=== PATIENT | male | born 1955 | race Caucasian/White ===

== ENCOUNTER 2016-12-10 10:54 | Inpatient (IN) | payer OTHER, MEDICARE ==
[~2016-12-10] VITALS: Ht 177.8 cm; Wt 80.2 kg
[~2016-12-10 10:54] MED LIST: CHLO25CA PO; FOLI1; OMEP20TA PO; THIA50CA PO; Z.0.NO CURRENT MEDS
[2016-12-10 10:59] VITALS: BP 139/85; PULSE 98; RESP 16; TEMP 99; O2SAT 97
[2016-12-10] MEDS ORDERED: LORazepam 1 MG TAB PO PRN (11:00)
[2016-12-10] MEDS ORDERED: FLUMAZENIL 0.5 MG/5 ML VIAL IV PUSH PRN (11:00)
[2016-12-10] MEDS ORDERED: IBUPROFEN 600 MG TAB PO PRN (11:00)
[2016-12-10] MEDS ORDERED: LORazepam 2 MG TAB PO PRN (11:00)
[2016-12-10] MEDS ORDERED: LORazepam 2 MG/ML VIAL IV PUSH PRN ×3 (11:00)
[2016-12-10] MEDS ORDERED: ONDANSETRON HCL 4 MG/2 ML VIAL IV PUSH PRN (11:00)
--- NOTE | 2016-12-10 11:05 | PD ---
HPI Chief Complaint: ba Time Seen by Provider: 11:05 Travel History International Travel<30 days: No Contact w/Intl Traveler<30days: No Traveled to known affect area: No History of Present Illness HPI 61-year-old male with history of CAD, remote CO, alcohol abuse, and tobacco dependency, presents to the emergency department under Anderson act for psychiatric evaluation. Patient was at the [place] [facility] when he stated that he was scared and may harm himself. He states that he has been severely depressed and does not want to live anymore. Denies any other substance abuse. Does report previous suicide attempts. Denies any acute medical needs at this time. PFSH Past Medical History Diminished Hearing: No Gastrointestinal Disorders: Yes (pancreatitis) Myocardial Infarction: Yes (1990) Pancreatitis: Yes Past Surgical History Appendectomy: Yes (1974) Social History Alcohol Use: Yes (Almost daily - 1/5th Vodka daily) Tobacco Use: Yes (1PPD) Substance Use: No Allergies-Medications (Allergen,Severity, Reaction): Coded Allergies: No Known Allergies (Unverified , 12/10/16) Reported Meds & Prescriptions Reported Meds & Active Scripts Active Reported B Complex (Vitamin B Complex) 1 Each Tablet 1 Tab PO DAILY Effexor (Venlafaxine HCl) 75 Mg Tab 75 Mg PO DAILY Trazodone (Trazodone HCl) 100 Mg Tablet 100 Mg PO HS Topiramate ER (Topiramate) 100 Mg Cap 100 Mg PO BID Prazosin (Prazosin HCl) 2 Mg Cap 2 Mg PO HS Mirtazapine 30 Mg Tab 30 Mg PO HS Meloxicam 7.5 Mg Tab 7.5 Mg PO DAILY Latuda (Lurasidone) 80 Mg Tab 80 Mg PO DAILY Isopto Tears Opth Drops (Hypromellose) 0.5% Drops 1 Drop EACH EYE Q6H PRN Hydroxyzine HCl 50 Mg Tab 50 Mg PO BID Review of Systems ROS Limitations: Intoxication Except as stated in HPI: all other systems reviewed are Neg Physical Exam Exam Limitations: Intoxication Narrative GENERAL: Well-nourished male patient, clinically intoxicated with slurred speech and smell of alcohol on his breath. SKIN: Focused skin assessment warm/dry. HEAD: Atraumatic. Normocephalic. EYES: Pupils equal and round. No scleral icterus. No injection or drainage. ENT: No nasal bleeding or discharge. Mucous membranes pink and moist. NECK: Trachea midline. No JVD. CARDIOVASCULAR: Regular rate and rhythm. No murmur appreciated. RESPIRATORY: No accessory muscle use. Clear to auscultation. Breath sounds equal bilaterally. GASTROINTESTINAL: Abdomen soft, non-tender, nondistended. Hepatic and splenic margins not palpable. MUSCULOSKELETAL: No obvious deformities. No clubbing. No cyanosis. No edema. NEUROLOGICAL: Awake and alert. No obvious cranial nerve deficits. Motor grossly within normal limits. Normal speech. Data Data Last Documented VS Vital Signs Date Time Temp Pulse Resp B/P Pulse Ox O2 Delivery O2 Flow Rate FiO2 12/10/16 17:05 97.8 81 16 122/84 98 Room Air Orders Complete Blood Count With Diff (12/10/16 11:00) Basic Metabolic Panel (Bmp) (12/10/16 11:00) Psych Screen (12/10/16 11:00) Drug Screen, Random Urine (12/10/16 11:00) Alcohol (Ethanol) (12/10/16 11:00) Diet Regular Basic (12/10/16 Lunch) Alcohol Withdrawal Asmt-Ciwa ONCE (12/10/16 11:00) Ondansetron Inj (Zofran Inj) (12/10/16 11:00) Ibuprofen (Motrin) (12/10/16 11:00) Flumazenil Inj (Romazicon Inj) (12/10/16 11:00) Lorazepam (Ativan) (12/10/16 11:00) Lorazepam Inj (Ativan Inj) (12/10/16 11:00) Lorazepam (Ativan) (12/10/16 11:00) Lorazepam Inj (Ativan Inj) (12/10/16 11:00) Lorazepam Inj (Ativan Inj) (12/10/16 11:00) Lorazepam Inj (Ativan Inj) (12/10/16 11:00) Labs Laboratory Tests Test 12/10/16 11:20 White Blood Count 10.1 TH/MM3 Red Blood Count 4.09 MIL/MM3 Hemoglobin 13.3 GM/DL Hematocrit 39.4 % Mean Corpuscular Volume 96.5 FL Mean Corpuscular Hemoglobin 32.4 PG Mean Corpuscular Hemoglobin 33.6 % Concent Red Cell Distribution Width 16.1 % Platelet Count 192 TH/MM3 Mean Platelet Volume 7.1 FL Neutrophils (%) (Auto) 74.5 % Lymphocytes (%) (Auto) 17.8 % Monocytes (%) (Auto) 7.1 % Eosinophils (%) (Auto) 0.2 % Basophils (%) (Auto) 0.4 % Neutrophils # (Auto) 7.5 TH/MM3 Lymphocytes # (Auto) 1.8 TH/MM3 Monocytes # (Auto) 0.7 TH/MM3 Eosinophils # (Auto) 0.0 TH/MM3 Basophils # (Auto) 0.0 TH/MM3 CBC Comment DIFF FINAL Differential Comment Sodium Level 134 MEQ/L Potassium Level 3.5 MEQ/L Chloride Level 96 MEQ/L Carbon Dioxide Level 23.8 MEQ/L Anion Gap 14 MEQ/L Blood Urea Nitrogen 11 MG/DL Creatinine 1.24 MG/DL Estimat Glomerular Filtration 59 ML/MIN Rate Random Glucose 196 MG/DL Calcium Level 9.1 MG/DL Ethyl Alcohol Level LESS THAN 3 MG/DL MDM Medical Decision Making Medical Screen Exam Complete: Yes Emergency Medical Condition: Yes Medical Record Reviewed: Yes Differential Diagnosis Mood disorder versus personality disorder versus adjustment reaction disorder versus substance abuse Narrative Course Laboratory Tests \ Test 12/10/16 11:20 White Blood Count 10.1 TH/MM3 Red Blood Count 4.09 MIL/MM3 Hemoglobin 13.3 GM/DL Hematocrit 39.4 % Mean Corpuscular Volume 96.5 FL Mean Corpuscular Hemoglobin 32.4 PG Mean Corpuscular Hemoglobin 33.6 % Concent Red Cell Distribution Width 16.1 % Platelet Count 192 TH/MM3 Mean Platelet Volume 7.1 FL Neutrophils (%) (Auto) 74.5 % Lymphocytes (%) (Auto) 17.8 % Monocytes (%) (Auto) 7.1 % Eosinophils (%) (Auto) 0.2 % Basophils (%) (Auto) 0.4 % Neutrophils # (Auto) 7.5 TH/MM3 Lymphocytes # (Auto) 1.8 TH/MM3 Monocytes # (Auto) 0.7 TH/MM3 Eosinophils # (Auto) 0.0 TH/MM3 Basophils # (Auto) 0.0 TH/MM3 CBC Comment DIFF FINAL Differential Comment Sodium Level 134 MEQ/L Potassium Level 3.5 MEQ/L Chloride Level 96 MEQ/L Carbon Dioxide Level 23.8 MEQ/L Anion Gap 14 MEQ/L Blood Urea Nitrogen 11 MG/DL Creatinine 1.24 MG/DL Estimat Glomerular Filtration 59 ML/MIN Rate Random Glucose 196 MG/DL Calcium Level 9.1 MG/DL Ethyl Alcohol Level LESS THAN 3 MG/DL 61-year-old male with history of alcoholism presents to emergency department under a Anderson act. Patient appears clinically intoxicated. He does report being scared that he may harm himself. Lab work is without acute concern. Patient is placed on CIWA protocol. He is medically cleared for psychiatric screening. Mental health screening discussed with the patient. Psychiatric screen ordered. Diagnosis Primary Impression: Depression Qualified Code: F32.9 - Depression, unspecified depression type Additional Impression: Alcohol dependence Qualified Code: F10.29 - Alcohol dependence with unspecified alcohol-induced disorder Condition: Stable Marlin Madrigal Dec 10, 2016 11:05
[2016-12-10] MEDS: LORazepam 2 MG/ML VIAL IV PUSH PRN ×2 (11:34→19:23)
[2016-12-10 11:47] LABS: AUTOMATED NEUTROPHIL # 7.5 TH/MM3 (1.8-7.7); BASOPHIL % 0.4 % (0.0-2.0); EOSINOPHIL % 0.2 % (0.0-4.0); HEMATOCRIT 39.4 % (39.0-51.0); HEMO FLAGS DIFF FINAL; LYMPH % 17.8 % (9.0-44.0); LYMPHOCYTE # 1.8 TH/MM3 (1.0-4.8); MEAN CELL VOLUME 96.5 FL (80.0-100.0); MEAN CORPUSCULAR HEMOGLOBIN 32.4 PG (27.0-34.0); MEAN CORPUSCULAR HGB CONC 33.6 % (32.0-36.0); MONO % 7.1 % (0.0-8.0); NEUT % 74.5 % (16.0-70.0); PLATELET COUNT 192 TH/MM3 (150-450); RED BLOOD COUNT 4.09 MIL/MM3 (4.50-5.90); RED CELL DISTRIBUTION WIDTH 16.1 % (11.6-17.2); WHITE BLOOD COUNT 10.1 TH/MM3 (4.0-11.0)
[2016-12-10 12:00] LABS: ANION GAP 14 MEQ/L (5-15); BICARBONATE 23.8 MEQ/L (21.0-32.0); BLOOD UREA NITROGEN 11 MG/DL (7-18); CHLORIDE 96 MEQ/L (98-107); GLOMERULAR FILTRATION RATE 59 ML/MIN (>89); POTASSIUM 3.5 MEQ/L (3.5-5.1); SODIUM (NA) 134 MEQ/L (136-145)
[2016-12-10 12:07] LABS: ALCOHOL LESS THAN 3 MG/DL (0-5)
[2016-12-10] MEDS ORDERED: ISOP0.5S EACH EYE (12:26)
[2016-12-10] MEDS ORDERED: HYDR50TA94 PO (12:26)
[2016-12-10] MEDS ORDERED: MIRT30TA PO (12:26)
[2016-12-10] MEDS ORDERED: RA BTAB PO (12:26)
[2016-12-10] MEDS ORDERED: VENL75TA PO (12:26)
[2016-12-10] MEDS ORDERED: TOPI1CAP22 PO (12:26)
[2016-12-10] MEDS ORDERED: PRAZ2CAP PO (12:26)
[2016-12-10] MEDS ORDERED: LURA80 PO (12:26)
[2016-12-10] MEDS ORDERED: TRAZ100T6 PO (12:26)
[2016-12-10] MEDS ORDERED: MELO7.5T4 PO (12:26)
[2016-12-10 13:03] VITALS: BP 124/81; PULSE 86; RESP 17; TEMP 97.8; O2SAT 99
[2016-12-10 15:00] VITALS: BP 118/77; PULSE 71; RESP 16; TEMP 98; O2SAT 99
[2016-12-10 17:05] VITALS: BP 122/84; PULSE 81; RESP 16; TEMP 97.8; O2SAT 98
[2016-12-10 19:24] VITALS: BP 118/86; PULSE 88; RESP 17; O2SAT 99
[2016-12-10] MEDS ORDERED: MAGNESIUM HYDROXIDE SUSP 30 ML CUP PO PRN (23:30)
[2016-12-10] MEDS ORDERED: diphenhydrAMINE HCL 50 MG CAP PO PRN (23:30)
[2016-12-10] MEDS ORDERED: ALUMINUM/MAGNESIUM/SIMETH 30 ML CUP PO PRN (23:30)
[2016-12-10] MEDS ORDERED: traZODone HCL 50 MG TAB PO PRN (23:30)
[2016-12-10] MEDS ORDERED: ACETAMINOPHEN 325 MG TAB PO PRN (23:30)
[2016-12-10] MEDS ORDERED: diphenhydrAMINE HCL 50 MG/ML VIAL - HS PRN IM (23:30)
[2016-12-10] MEDS ORDERED: diphenhydrAMINE HCL 50 MG CAP - HS PRN PO (23:30)
[2016-12-10] MEDS ORDERED: diphenhydrAMINE HCL 50 MG/ML VIAL IM PRN (23:30)
[2016-12-10] MEDS ORDERED: HALOPERIDOL LACTATE 5 MG/ML AMP IM PRN (23:30)
[2016-12-10 23:45] VITALS: BP 126/79; PULSE 87; RESP 18; TEMP 98.7; O2SAT 95
[2016-12-10] MEDS ORDERED: HYPROMELLOSE OPTH EACH EYE PRN (23:45)
[2016-12-11 05:21] VITALS: BP 113/68; PULSE 77; RESP 16; TEMP 98; O2SAT 98
[2016-12-11] MEDS: LURASIDONE 80 MG TAB PO SCH (08:28)
[2016-12-11] MEDS: VENLAFAXINE HCL XR 75 MG CAP PO SCH (08:28)
[2016-12-11] MEDS: NICOTINE 21 MG/24 HR PATCH T-DERMAL SCH (08:28)
[2016-12-11] MEDS: TOPIRAMATE 100 MG PO SCH ×2 (08:35→21:00)
[2016-12-11] MEDS ORDERED: PNEUMOCOCCAL POLYVALENT INJ 25 MCG/0.5 ML SYR IM ONE (09:00)
[2016-12-11 12:25] LABS: AUTOMATED NEUTROPHIL # 5.2 TH/MM3 (1.8-7.7); BASOPHIL # 0.1 TH/MM3 (0-0.2); BASOPHIL % 0.8 % (0.0-2.0); EOSINOPHIL # 0.2 TH/MM3 (0-0.4); EOSINOPHIL % 1.8 % (0.0-4.0); HEMATOCRIT 42.7 % (39.0-51.0); HEMO FLAGS DIFF FINAL; LYMPH % 36.4 % (9.0-44.0); LYMPHOCYTE # 3.5 TH/MM3 (1.0-4.8); MEAN CELL VOLUME 96.9 FL (80.0-100.0); MEAN CORPUSCULAR HEMOGLOBIN 32.8 PG (27.0-34.0); MEAN CORPUSCULAR HGB CONC 33.9 % (32.0-36.0); MONO % 6.3 % (0.0-8.0); NEUT % 54.7 % (16.0-70.0); PLATELET COUNT 181 TH/MM3 (150-450); RED CELL DISTRIBUTION WIDTH 15.8 % (11.6-17.2); WHITE BLOOD COUNT 9.5 TH/MM3 (4.0-11.0)
[2016-12-11 13:00] LABS: ANION GAP 9 MEQ/L (5-15); BICARBONATE 29.1 MEQ/L (21.0-32.0); BLOOD UREA NITROGEN 18 MG/DL (7-18); CHLORIDE 100 MEQ/L (98-107); GLOMERULAR FILTRATION RATE 60 ML/MIN (>89); HDL CHOLESTEROL 56.2 MG/DL (40.0-60.0); LDL CHOLESTEROL 157 MG/DL (0-99); POTASSIUM 3.7 MEQ/L (3.5-5.1); SODIUM (NA) 138 MEQ/L (136-145)
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
[2016-12-11 17:00] LABS: HEMOGLOBIN A1a 1.5 %; HEMOGLOBIN A1b 0.9 %; HEMOGLOBIN Ao 83.2 %; HEMOGLOBIN F 1.9 %; HEMOGLOBIN LA1C 2.5 %; HEMOGLOBIN P3 4.1 %
[2016-12-11] MEDS ORDERED: HYPROMELLOSE 0.3 % OPTH GEL 10 GM (0.34 FL OZ) TUBE EACH EYE PRN (17:00)
[2016-12-11 18:16] VITALS: BP 115/76; PULSE 96; RESP 16; TEMP 98.6; O2SAT 98
[2016-12-11] MEDS ORDERED: PRAZOSIN HCL 2 MG CAP PO SCH (21:00)
[2016-12-11] MEDS ORDERED: traZODone HCL 100 MG TAB PO SCH (21:00)
[2016-12-11] MEDS ORDERED: MIRTAZAPINE 15 MG TAB PO SCH (21:00)
[2016-12-11] MEDS: REMOVE OLD NICOTINE PATCH T-DERMAL SCH (21:00)
[2016-12-11] MEDS: PRAZOSIN HCL 2 MG CAP PO SCH (21:29)
[2016-12-11] MEDS: MIRTAZAPINE 15 MG TAB PO SCH (21:30)
[2016-12-11] MEDS: TOPIRAMATE 100 MG TAB PO SCH (21:34)
[2016-12-12 05:03] VITALS: BP 101/72; PULSE 92; RESP 16; TEMP 97.7; O2SAT 96
[2016-12-12] MEDS: TOPIRAMATE 100 MG TAB PO SCH ×2 (08:19→23:00)
[2016-12-12] MEDS: THIAMINE HCL 100 MG TAB PO SCH (08:20)
[2016-12-12] MEDS: MELOXICAM 7.5 MG TAB PO SCH (08:20)
[2016-12-12] MEDS: VITAMIN B COMPLEX/VIT C TAB PO SCH (08:20)
[2016-12-12] MEDS: VENLAFAXINE HCL XR 75 MG CAP PO SCH (08:20)
[2016-12-12] MEDS: LURASIDONE 80 MG TAB PO SCH (08:20)
[2016-12-12] MEDS: NICOTINE 21 MG/24 HR PATCH T-DERMAL SCH (08:21)
[2016-12-12] MEDS: TOPIRAMATE 100 MG PO SCH ×2 (08:28→21:00)
[2016-12-12] MEDS ORDERED: LURASIDONE 80 MG TAB PO SCH (09:00)
[2016-12-12] MEDS ORDERED: VENLAFAXINE HCL XR 75 MG CAP PO SCH (09:00)
--- NOTE | 2016-12-12 09:51 | HHI.PYPN ---
Subjective Remarks Patient seen in his room and floor staff, continues calm cooperative with me though somewhat blunted affect. He continues with auditory hallucinations of a demeaning insulting nature. He denies suicidal ideation "so far" today. States his sleep is this very poor last night. States he has been taking 300 mg trazodone at at bedtime. Will increase at bedtime dose at this time to 200 mg and observe. for Now continue treatment Review of Systems Except as stated in HPI: all other systems reviewed are Neg Objective Alert: Yes [place]: Person, Place, Date Mood: Calm, Depressed Affect: Blunted Memory Intact: Comment (fair) Hallucinations: Auditory (the command intimidating belittling nature) Delusions: No Delusion Type: Other (vigilant) Suicidal: Ideation (ambiguous today) Homicidal: Ideation (denies) Insight/Judgment Poor Labs Test 12/11/16 11:33 White Blood Count 9.5 TH/MM3 Red Blood Count 4.40 MIL/MM3 Hemoglobin 14.4 GM/DL Hematocrit 42.7 % Mean Corpuscular Volume 96.9 FL Mean Corpuscular Hemoglobin 32.8 PG Mean Corpuscular Hemoglobin 33.9 % Concent Red Cell Distribution Width 15.8 % Platelet Count 181 TH/MM3 Mean Platelet Volume 8.1 FL Neutrophils (%) (Auto) 54.7 % Lymphocytes (%) (Auto) 36.4 % Monocytes (%) (Auto) 6.3 % Eosinophils (%) (Auto) 1.8 % Basophils (%) (Auto) 0.8 % Neutrophils # (Auto) 5.2 TH/MM3 Lymphocytes # (Auto) 3.5 TH/MM3 Monocytes # (Auto) 0.6 TH/MM3 Eosinophils # (Auto) 0.2 TH/MM3 Basophils # (Auto) 0.1 TH/MM3 CBC Comment DIFF FINAL Differential Comment Sodium Level 138 MEQ/L Potassium Level 3.7 MEQ/L Chloride Level 100 MEQ/L Carbon Dioxide Level 29.1 MEQ/L Anion Gap 9 MEQ/L Blood Urea Nitrogen 18 MG/DL Creatinine 1.22 MG/DL Estimat Glomerular Filtration 60 ML/MIN Rate Random Glucose 101 MG/DL Hemoglobin A1c 5.2 % Calcium Level 9.9 MG/DL Triglycerides Level 249 MG/DL Cholesterol Level 263 MG/DL LDL Cholesterol 157 MG/DL HDL Cholesterol 56.2 MG/DL Cholesterol/HDL Ratio 4.67 RATIO Vitals/IOs Vital Signs Date Time Temp Pulse Resp B/P Pulse Ox O2 Delivery O2 Flow Rate FiO2 12/12/16 05:03 97.7 92 16 101/72 96 12/10/16 19:24 Room Air Intake and Output 12/11/16 12/11/16 12/11/16 07:59 15:59 23:59 Intake Total 360 ml Balance 360 ml Assessment & Plan Problem List: (1) Alcohol dependence ICD Code: F10.20 (2) Major depressive disorder, recurrent episode, severe, with psychosis ICD Code: F33.3 Assessment & Plan Estimated LOS: days patient continue psychotic and depressed. Poor sleep. She medication adjustment about. Justification for Cont. Inpt. At this time patient will decompensate and placed in the lower level of care Discharge Planning To be determined Request HC Surrog/Guard Advoc?: No Problem Qualifiers (1) Alcohol dependence: Qualified Code: F10.20 - Uncomplicated alcohol dependence Jakub Atwood MD Dec 12, 2016 09:51
[2016-12-12 20:24] VITALS: BP 118/86; PULSE 101; RESP 16; TEMP 98.1; O2SAT 98
[2016-12-12] MEDS: REMOVE OLD NICOTINE PATCH T-DERMAL SCH (21:00)
[2016-12-12] MEDS: PRAZOSIN HCL 2 MG CAP PO SCH (21:43)
[2016-12-12] MEDS: MIRTAZAPINE 15 MG TAB PO SCH (21:44)
[2016-12-12] MEDS: traZODone HCL 100 MG TAB PO SCH (21:44)
[2016-12-13 05:20] VITALS: BP 169/65; PULSE 92; RESP 16; TEMP 98.7; O2SAT 96
[2016-12-13] MEDS: TOPIRAMATE 100 MG PO SCH ×2 (09:00→21:00)
[2016-12-13] MEDS: LURASIDONE 80 MG TAB PO SCH (09:19)
[2016-12-13] MEDS: VITAMIN B COMPLEX/VIT C TAB PO SCH (09:19)
[2016-12-13] MEDS: MELOXICAM 7.5 MG TAB PO SCH (09:19)
[2016-12-13] MEDS: TOPIRAMATE 100 MG TAB PO SCH ×2 (09:19→21:06)
[2016-12-13] MEDS: VENLAFAXINE HCL XR 75 MG CAP PO SCH (09:19)
[2016-12-13] MEDS: THIAMINE HCL 100 MG TAB PO SCH (09:19)
[2016-12-13] MEDS: NICOTINE 21 MG/24 HR PATCH T-DERMAL SCH (09:20)
--- NOTE | 2016-12-13 15:45 | HHI.PYPN ---
Subjective Remarks Patient was seen and case discussed with nursing. Patient is pleasant and cooperative with exam. CIWA is 0. There are no visual hallucinations, nausea, vomiting. He is complaining of some burning in his stomach. Denies auditory visual hallucinations. Mood is "pretty good." Denies suicidal ideation intent or plan. Says he is vigilant Objective Alert: Yes [place]: Person, Place, Date Mood: Calm Affect: Restricted Memory Intact: Comment (fair) Hallucinations: Auditory (denies today) Delusions: No Delusion Type: Paranoid (vigilance) Suicidal: Ideation (denies) Homicidal: Ideation (denies) Insight/Judgment Poor Vitals/IOs Vital Signs Date Time Temp Pulse Resp B/P Pulse Ox O2 Delivery O2 Flow Rate FiO2 12/13/16 05:20 98.7 92 16 169/65 96 12/10/16 19:24 Room Air Assessment & Plan Problem List: (1) Alcohol dependence ICD Code: F10.20 (2) Major depressive disorder, recurrent episode, severe, with psychosis ICD Code: F33.3 Assessment & Plan Continue current treatment plan Justification for Cont. Inpt. Patient would decompensate in a less restrictive setting Request HC Surrog/Guard Advoc?: No Problem Qualifiers (1) Alcohol dependence: Qualified Code: F10.20 - Uncomplicated alcohol dependence Quincy Allen DO Dec 13, 2016 15:45
[2016-12-13 17:00] VITALS: BP 106/78; PULSE 108; RESP 18; TEMP 98.3; O2SAT 98
[2016-12-13] MEDS: REMOVE OLD NICOTINE PATCH T-DERMAL SCH (21:00)
[2016-12-13] MEDS: PRAZOSIN HCL 2 MG CAP PO SCH (21:06)
[2016-12-13] MEDS: traZODone HCL 100 MG TAB PO SCH (21:07)
[2016-12-13] MEDS: MIRTAZAPINE 15 MG TAB PO SCH (21:07)
[2016-12-14 07:13] VITALS: BP 114/67; PULSE 83; RESP 18; O2SAT 96
[2016-12-14] MEDS: TOPIRAMATE 100 MG PO SCH ×2 (09:00→20:37)
[2016-12-14] MEDS: MELOXICAM 7.5 MG TAB PO SCH (09:23)
[2016-12-14] MEDS: NICOTINE 21 MG/24 HR PATCH T-DERMAL SCH (09:23)
[2016-12-14] MEDS: THIAMINE HCL 100 MG TAB PO SCH (09:23)
[2016-12-14] MEDS: LURASIDONE 80 MG TAB PO SCH (09:23)
[2016-12-14] MEDS: VENLAFAXINE HCL XR 75 MG CAP PO SCH (09:23)
[2016-12-14] MEDS: TOPIRAMATE 100 MG TAB PO SCH ×2 (09:23→20:34)
[2016-12-14] MEDS: VITAMIN B COMPLEX/VIT C TAB PO SCH (09:23)
--- NOTE | 2016-12-14 16:56 | HHI.PYPN ---
Subjective Remarks Patient was seen and case discussed with nursing. Patient is complaining is not getting Atarax but does not appear to be ordered. He is blunted and hypoverbal. Seclusive per nursing, up only for meals. He is depressed "a little bit." He denies suicidal ideation intent or plan. Says he feels safe here compared to his home. Tolerating his medications well Objective Alert: Yes [place]: Person, Place, Date Mood: Calm Affect: Blunted Memory Intact: Comment (fair) Hallucinations: Auditory (denies today) Delusions: No Delusion Type: Paranoid (vigilance) Suicidal: Ideation (denies) Homicidal: Ideation (denies) Insight/Judgment Poor Vitals/IOs Vital Signs Date Time Temp Pulse Resp B/P (MAP) Pulse Ox O2 Delivery O2 Flow Rate FiO2 12/14/16 07:13 83 18 114/67 (83) 96 12/13/16 17:00 98.3 12/10/16 19:24 Room Air Assessment & Plan Problem List: (1) Alcohol dependence ICD Codes: F10.20 - Alcohol dependence, uncomplicated Status: Acute (2) Major depressive disorder, recurrent episode, severe, with psychosis ICD Codes: F33.3 - Major depressive disorder, recurrent, severe with psychotic symptoms Status: Acute Assessment & Plan Continue current treatment plan Justification for Cont. Inpt. Patient would decompensate in a less restrictive setting Request HC Surrog/Guard Advoc?: No Problem Qualifiers (1) Alcohol dependence: Quincy Allen DO Dec 14, 2016 16:56
[2016-12-14] MEDS ORDERED: hydrOXYzine HCL 50 MG TAB PO PRN (17:00)
[2016-12-14 18:36] VITALS: BP 141/75; PULSE 96; RESP 17; TEMP 98.8; O2SAT 97
[2016-12-14] MEDS: PRAZOSIN HCL 2 MG CAP PO SCH (20:34)
[2016-12-14] MEDS: traZODone HCL 100 MG TAB PO SCH (20:34)
[2016-12-14] MEDS: MIRTAZAPINE 15 MG TAB PO SCH (20:34)
[2016-12-14] MEDS: REMOVE OLD NICOTINE PATCH T-DERMAL SCH (20:35)
[2016-12-15 06:05] VITALS: BP 109/66; PULSE 81; RESP 16; TEMP 98.9; O2SAT 100
[2016-12-15] MEDS: TOPIRAMATE 100 MG TAB PO SCH ×2 (09:02→21:44)
[2016-12-15] MEDS: VENLAFAXINE HCL XR 75 MG CAP PO SCH (09:02)
[2016-12-15] MEDS: NICOTINE 21 MG/24 HR PATCH T-DERMAL SCH (09:02)
[2016-12-15] MEDS: VITAMIN B COMPLEX/VIT C TAB PO SCH (09:02)
[2016-12-15] MEDS: LURASIDONE 80 MG TAB PO SCH (09:02)
[2016-12-15] MEDS: THIAMINE HCL 100 MG TAB PO SCH (09:02)
[2016-12-15] MEDS: MELOXICAM 7.5 MG TAB PO SCH (09:03)
--- NOTE | 2016-12-15 16:39 | HHI.PYPN ---
Subjective Remarks Patient seen with nurse Noemy, chart reviewed, patient compliant medications. Patient states had good weekend, his depression is lifting. He denies suicidality homicidality voices or visions. He feels medication is working well. Patient continues to do would consider discharge tomorrow Review of Systems Except as stated in HPI: all other systems reviewed are Neg Objective Alert: Yes [place]: Person, Place, Date Mood: Calm Affect: Blunted Memory Intact: Comment (fair) Hallucinations: Auditory (denies today) Delusions: No Delusion Type: Paranoid (vigilance) Suicidal: Ideation (denies) Homicidal: Ideation (denies) Insight/Judgment Poor Vitals/IOs Vital Signs Date Time Temp Pulse Resp B/P (MAP) Pulse Ox O2 Delivery O2 Flow Rate FiO2 12/15/16 06:05 98.9 81 16 109/66 (80) 100 Assessment & Plan Problem List: (1) Alcohol dependence ICD Codes: F10.20 - Alcohol dependence, uncomplicated Status: Acute (2) Major depressive disorder, recurrent episode, severe, with psychosis ICD Codes: F33.3 - Major depressive disorder, recurrent, severe with psychotic symptoms Status: Acute Assessment & Plan Estimated LOS: days patient mood is lifting, denying suicidality homicidality voices or visions. Compliant medications. Continues to improve consider discharge tomorrow Justification for Cont. Inpt. Consider discharge tomorrow Discharge Planning To be determined Request HC Surrog/Guard Advoc?: No Problem Qualifiers (1) Alcohol dependence: Jakub Atwood MD Dec 15, 2016 16:38
[2016-12-15 19:53] VITALS: BP 109/77; PULSE 107; RESP 17; TEMP 99.4; O2SAT 96
[2016-12-15] MEDS: TOPIRAMATE 100 MG PO SCH (21:00)
[2016-12-15] MEDS: REMOVE OLD NICOTINE PATCH T-DERMAL SCH (21:00)
[2016-12-15] MEDS: MIRTAZAPINE 15 MG TAB PO SCH (21:44)
[2016-12-15] MEDS: traZODone HCL 100 MG TAB PO SCH (21:44)
[2016-12-15] MEDS: PRAZOSIN HCL 2 MG CAP PO SCH (21:44)
[2016-12-16 05:57] VITALS: BP 90/55; PULSE 78; RESP 17; TEMP 98.6; O2SAT 98
[2016-12-16] MEDS: TOPIRAMATE 100 MG PO SCH (07:35)
[2016-12-16] MEDS: VENLAFAXINE HCL XR 75 MG CAP PO SCH (08:40)
[2016-12-16] MEDS: TOPIRAMATE 100 MG TAB PO SCH (08:40)
[2016-12-16] MEDS: MELOXICAM 7.5 MG TAB PO SCH (08:40)
[2016-12-16] MEDS: THIAMINE HCL 100 MG TAB PO SCH (08:40)
[2016-12-16] MEDS: LURASIDONE 80 MG TAB PO SCH (08:40)
[2016-12-16] MEDS: VITAMIN B COMPLEX/VIT C TAB PO SCH (08:40)
[2016-12-16] MEDS: NICOTINE 21 MG/24 HR PATCH T-DERMAL SCH (08:40)
[2016-12-16] MEDS ORDERED: TRAZ50TA12 PO (15:38)
[2016-12-16] MEDS ORDERED: REME30TA PO (15:38)
[2016-12-16] MEDS ORDERED: VENL75XR PO (15:38)
[2016-12-16] MEDS ORDERED: PRAZ2 PO (15:38)
[2016-12-16] MEDS ORDERED: LURA80 PO (15:38)
[2016-12-16] MEDS ORDERED: MELO7.5T4 PO (15:38)
[2016-12-16] MEDS ORDERED: GNP100TA3 PO (15:38)
[2016-12-16] MEDS ORDERED: TOPA100T11 PO (15:38)
[2016-12-16] MEDS ORDERED: ALLBC PO (15:38)
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
== END 2016-12-16 17:28 | disposition home or self-care (01) | DRG 885 ==
LOC: NEPD 10:54 → NEDA 22:33 → H260 23:30
PROVIDERS: ADMIT Psychiatry & Neurology Psychiatry; ATTEND Psychiatry & Neurology Psychiatry
DX: F33.3 Major depressive disorder, recurrent, severe with psychotic symptoms (principal); F10.20 Alcohol dependence, uncomplicated; G47.00 Insomnia, unspecified; I25.10 Atherosclerotic heart disease of native coronary artery without angina pectoris; I25.2 Old myocardial infarction; F17.210 Nicotine dependence, cigarettes, uncomplicated
CPT/HCPCS: 80048; 80061; 80307; 83036; 85025; 96374; 96375; 96376; J2060; J2405